=== PATIENT | male | born 1965 | race Caucasian/White ===

== ENCOUNTER 2017-04-28 20:30 | Emergency (ER) | payer BC ==
[~2017-04-28] VITALS: Ht 177.8 cm; Wt 92.7 kg
[~2017-04-28 20:30] MED LIST: NAPROSYN500 MG PO; VALIUM5 MG PO
[2017-04-28 20:59] LABS: BASOPHIL (%) 0.9 % (0-1); BASOPHIL COUNT 0.1 K/uL (0-0.1); EOSINOPHIL (%) 2.4 % (0-5); EOSINOPHIL COUNT 0.2 K/uL (0-0.3); HEMATOCRIT 44.5 % (38.0-50.0); HEMOGLOBIN 15.7 G/DL (12.5-16.6); IMMATURE GRANULOCYTE (%) 0.2 % (0.0-0.7); LYMPHOCYTE (%) 51.3 % (15-42); LYMPHOCYTE COUNT 4.2 K/uL (1.0-2.8); MCH 31.7 PG (29.0-34.0); MCHC 35.3 G/DL (30.0-36.0); MCV 89.7 FL (86-99); MONOCYTE (%) 8.5 % (3-12); MONOCYTE COUNT 0.7 K/uL (0-0.8); NEUTROPHIL (%) 36.7 % (45-76); PLATELET COUNT 255 K/uL (156-360); RBC DIS.WIDTH-CV 12.1 % (11.8-14.6); RBC DIS.WIDTH-SD 39.6 % (39-53); RED BLOOD COUNT 4.96 M/uL (4.00-5.50); WHITE BLOOD COUNT 8.2 K/uL (4.1-10.2)
[2017-04-28 21:13] LABS: CHLORIDE 106 mEq/L (99-109); POTASSIUM 3.5 mEq/L (3.7-5.4); SODIUM 140 mEq/L (136-147)
[2017-04-28 21:14] LABS: MAGNESIUM 2.5 mg/dL (1.3-2.7)
[2017-04-28 21:15] LABS: GLUCOSE 111 mg/dL (70-99)
[2017-04-28 21:19] LABS: GFR ESTIMATE (CALCULATED) > 59 mL/min/ (58.99-99999)
[2017-04-28 21:20] LABS: UREA NITROGEN (BUN) 15 mg/dL (9-23)
[2017-04-28 21:27] LABS: TROP-I INTERPRETATION NEGATIVE; TROPONIN-I < 0.01 ng/mL (0.0-0.30)
[2017-04-28] MEDS ORDERED: ASPIRIN81 M2 PO (21:47)
[2017-04-28] MEDS ORDERED: METOPROLOL TART25 MG PO (21:47)
[2017-04-28 22:09] VITALS: BP 135/86
== END 2017-04-28 22:17 | disposition home or self-care (01) ==
LOC: EME 20:30
PROVIDERS: Emergency Medicine
DX: I47.1 Supraventricular tachycardia (principal); Z88.0 Allergy status to penicillin
CPT/HCPCS: 80048; 83735; 84484; 85025; 93005; 99281; 99285; J0153; J7030

== ENCOUNTER 2017-06-02 19:19 | Emergency (ER) | payer BC ==
[~2017-06-02] VITALS: Ht 177.8 cm; Wt 97.3 kg
[~2017-06-02 19:19] MED LIST changes: +ASPIRIN81 M2 PO; +METOPROLOL TART25 MG PO
[2017-06-02 20:03] LABS: HEMATOCRIT 43.7 % (38.0-50.0); MCH 31.9 PG (29.0-34.0); MCHC 36.6 G/DL (30.0-36.0); MCV 87.2 FL (86-99); PLATELET COUNT 256 K/uL (156-360); RBC DIS.WIDTH-CV 12.2 % (11.8-14.6); RBC DIS.WIDTH-SD 39.1 % (39-53); RED BLOOD COUNT 5.01 M/uL (4.00-5.50); WHITE BLOOD COUNT 7.1 K/uL (4.1-10.2)
[2017-06-02 20:25] LABS: TROP-I INTERPRETATION NEGATIVE; TROPONIN-I < 0.01 ng/mL (0.0-0.30)
[2017-06-02 20:42] LABS: ALBUMIN 4.5 G/DL (3.2-4.8); CHLORIDE 107 MEQ/L (99-109); POTASSIUM 4.1 MEQ/L (3.7-5.4); SODIUM 140 MEQ/L (136-147); TOTAL BILIRUBIN 0.3 MG/DL (0.0-1.0)
[2017-06-02 20:48] LABS: ALKALINE PHOSPHATASE 50 IU/L (3-129); ALT (GPT) 28 IU/L (3-49); AST (GOT) 24 IU/L (2-34); CREATININE 0.9 MG/DL (0.6-1.3); GFR ESTIMATE (CALCULATED) > 59 mL/min/ (58.99-99999); GLUCOSE 148 mg/dL (70-99); TOTAL PROTEIN 6.8 G/DL (6.4-8.3); UREA NITROGEN (BUN) 18 mg/dL (9-23)
[2017-06-02 21:36] VITALS: BP 136/91
== END 2017-06-02 21:38 | disposition home or self-care (01) ==
LOC: EME 19:19
PROVIDERS: Emergency Medicine
DX: I47.1 Supraventricular tachycardia (principal); I44.7 Left bundle-branch block, unspecified
CPT/HCPCS: 71045; 80053; 83880; 84484; 85027; 93005; 99281; 99285

== ENCOUNTER 2017-09-22 18:08 | Emergency (ER) | payer BC ==
[~2017-09-22] VITALS: Ht 177.8 cm; Wt 93.1 kg
[2017-09-22 20:46] VITALS: BP 118/69
== END 2017-09-22 20:38 | disposition home or self-care (01) ==
LOC: EME 18:08
PROC: 2W38X1Z Immobilization of Right Upper Extremity using Splint (ICD-10-PCS; principal; 2017-09-22)
DX: S42.401A Unspecified fracture of lower end of right humerus, initial encounter for closed fracture (principal); S40.021A Contusion of right upper arm, initial encounter; X58.XXXA Exposure to other specified factors, initial encounter; M79.89 Other specified soft tissue disorders
CPT/HCPCS: 93971; 99281; 99282